=== PATIENT | female | born 1995 | race Caucasian/White ===

== ENCOUNTER → 2021-11-02 | Outpatient (REF) | payer OTHER ==
[2021-11-02 12:25] LABS: BASO # 0.1 10^3/uL (0.0-0.2); BASO % 0.7 % (0.0-1.0); EOS # 0.1 10^3/uL (0.0-0.5); EOS % 1.7 % (0.0-3.0); HEMATOCRIT 40.9 % (36.0-47.0); HEMOGLOBIN 13.3 g/dl (12.0-15.5); LYMPH # 1.5 10^3/uL (1.5-5.0); LYMPH % 21.8 % (24.0-44.0); MEAN CORPUSCULAR HEMOGLOBIN 28.9 pg (27.0-33.0); MEAN CORPUSCULAR HGB CONC 32.5 g/dl (32.0-36.5); MEAN CORPUSCULAR VOLUME 88.9 fl (80.0-96.0); MONO # 0.4 10^3/uL (0.0-0.8); MONO % 5.7 % (2.0-8.0); NEUTROPHILS # 4.9 10^3/uL (1.5-8.5); NEUTROPHILS % 69.8 % (36.0-66.0); PLATELET COUNT, AUTOMATED 319 10^3/uL (150-450); WHITE BLOOD COUNT 7.1 10^3/uL (4.0-10.0)
[2021-11-02 12:48] LABS: ALBUMIN 3.7 GM/DL (3.2-5.2); ALT/SGPT 21 U/L (12-78); BILIRUBIN,TOTAL 0.4 MG/DL (0.2-1.0); BLOOD UREA NITROGEN 13 MG/DL (7-18); C REACTIVE PROTEIN QUANTITATIV 0.34 MG/DL (0.00-0.30); CALCIUM LEVEL 9.1 MG/DL (8.5-10.1); CARBON DIOXIDE LEVEL 26 MEQ/L (21-32); CHLORIDE LEVEL 106 MEQ/L (98-107); GLOMERULAR FILTRATION RATE > 60.0 (>60); GLUCOSE, FASTING 98 MG/DL (70-100); POTASSIUM SERUM 4.5 MEQ/L (3.5-5.1); SODIUM LEVEL 136 MEQ/L (136-145); TOTAL PROTEIN 7.3 GM/DL (6.4-8.2)
[2021-11-02 13:24] LABS: ERYTHROCYTE SEDIMENTATION RATE 10 mm/hr (0-20)
[2021-11-02 13:29] LABS: HEPATITIS B SURFACE ANTIGEN NEGATIVE (NEGATIVE)
[2021-11-02 13:56] LABS: HEPATITIS C VIRUS ABY INDEX < 0.0 INDEX (<0.8)
[2021-11-02 13:57] LABS: HEPATITIS B CORE ANTIBODY IGM NEGATIVE (NEGATIVE)
== END ==
LOC: M SFHCRHEU 08:51
PROVIDERS: ATTEND Internal Medicine Rheumatology
DX: M45.0 Ankylosing spondylitis of multiple sites in spine (principal); Z15.89 Genetic susceptibility to other disease; Z79.899 Other long term (current) drug therapy; R76.8 Other specified abnormal immunological findings in serum

== ENCOUNTER → 2022-05-14 | Outpatient (CLI) | payer OTHER ==
[2022-05-14 11:42] LABS: BASO % 0.5 % (0.0-1.0); EOS # 0.1 10^3/uL (0.0-0.5); EOS % 1.4 % (0.0-3.0); HEMATOCRIT 34.7 % (36.0-47.0); LYMPH # 2.3 10^3/uL (1.5-5.0); LYMPH % 27.8 % (24.0-44.0); MEAN CORPUSCULAR HEMOGLOBIN 26.7 pg (27.0-33.0); MEAN CORPUSCULAR HGB CONC 31.7 g/dl (32.0-36.5); MEAN CORPUSCULAR VOLUME 84.2 fl (80.0-96.0); MONO # 0.6 10^3/uL (0.0-0.8); MONO % 7.2 % (2.0-8.0); NEUTROPHILS # 5.3 10^3/uL (1.5-8.5); NEUTROPHILS % 62.5 % (36.0-66.0); PLATELET COUNT, AUTOMATED 281 10^3/uL (150-450); RED BLOOD COUNT 4.12 10^6/uL (4.00-5.40); WHITE BLOOD COUNT 8.4 10^3/uL (4.0-10.0)
[2022-05-14 12:13] LABS: C REACTIVE PROTEIN QUANTITATIV < 0.40 MG/DL (<1.0)
[2022-05-14 12:19] LABS: ALBUMIN 2.6 G/DL (3.2-5.2); ALKALINE PHOSPHATASE 100 U/L (46-116); ALT/SGPT 15 U/L (7.0-40); AST/SGOT 17 U/L (<34); BILIRUBIN,TOTAL 0.5 MG/DL (0.3-1.2); BLOOD UREA NITROGEN 8 MG/DL (9-23); CALCIUM LEVEL 7.9 MG/DL (8.5-10.1); CARBON DIOXIDE LEVEL 26 MMOL/L (20-31); CHLORIDE LEVEL 105 MMOL/L (98-107); CREATININE FOR GFR 0.49 MG/DL (0.55-1.30); GLOMERULAR FILTRATION RATE > 60.0 (>60); GLUCOSE, FASTING 99 MG/DL (60-100); SODIUM LEVEL 137 MMOL/L (136-145); TOTAL PROTEIN 6.1 G/DL (5.7-8.2)
[2022-05-14 13:18] LABS: ERYTHROCYTE SEDIMENTATION RATE 37 mm/hr (0-20)
== END ==
LOC: M WUC 09:45
PROVIDERS: ATTEND Internal Medicine Rheumatology
DX: M45.0 Ankylosing spondylitis of multiple sites in spine (principal); R76.8 Other specified abnormal immunological findings in serum; Z15.89 Genetic susceptibility to other disease; Z79.899 Other long term (current) drug therapy; Z36.9 Encounter for antenatal screening, unspecified

== ENCOUNTER 2022-07-05 12:48 | Outpatient (CLI) | payer OTHER ==
[~2022-07-05] VITALS: Ht 172.7 cm; Wt 84.9 kg
[2022-07-05] MEDS ORDERED: ASPI81CH33 PO (13:24)
[2022-07-05] MEDS ORDERED: PRIL20TA2 PO (13:24)
[2022-07-05] MEDS ORDERED: TUMS500C PO (13:24)
[2022-07-05] MEDS ORDERED: CIMZ200K SC (13:24)
[2022-07-05] MEDS ORDERED: PRENTAB9 PO ×2 (13:24)
[2022-07-05 13:28] VITALS: BP 125/75
[2022-07-05] MEDS ORDERED: HOME MED LIST COMPLETE! XX SCH (13:30)
[2022-07-05] MEDS ORDERED: REGL10TA6 PO (13:33)
[2022-07-05 15:21] VITALS: BP 126/73
== END 2022-07-05 15:30 | disposition home or self-care (01) ==
LOC: M LDO 12:48
PROVIDERS: ATTEND Advanced Practice Midwife
DX: O47.1 False labor at or after 37 completed weeks of gestation (principal); Z3A.39 39 weeks gestation of pregnancy
CPT/HCPCS: 59025; 76815; G0463

== ENCOUNTER 2022-07-05 17:42 | Inpatient (IN) | payer OTHER ==
[2022-07-05] VITALS (39 sets, daily range): BP systolic 101–144; BP diastolic 56–90
[~2022-07-05] VITALS: Ht 172.7 cm; Wt 84.9 kg
[~2022-07-05 17:42] MED LIST: ASPI81CH33 PO; CIMZ200K SC; PRENTAB9 PO; PRIL20TA2 PO; REGL10TA6 PO; TUMS500C PO
[2022-07-05] MEDS ORDERED: CARBOPROST TROMETHAMINE 250 MCG/ML AMP IM PRN (18:05)
[2022-07-05] MEDS ORDERED: OXYTOCIN INJ 10UNITS/ML 1ML VIAL IV PRN (18:05)
[2022-07-05] MEDS ORDERED: METHYLERGONOVINE MALEATE 0.2MG/ML 1ML VIAL IM PRN (18:05)
[2022-07-05] MEDS ORDERED: LIDOCAINE 1% MDV 20ML VIAL INFIL PRN (18:05)
[2022-07-05] MEDS ORDERED: TRANEXAMIC ACID INJection 1,000 MG in NS 100 ML IV PRN (18:05)
[2022-07-05] MEDS ORDERED: OXYTOCIN DRIP 30 UNITS in IV 1 EA IV PRN ×6 (18:05)
[2022-07-05] MEDS ORDERED: OXYTOCIN INJ 10UNITS/ML 1ML VIAL IM PRN (18:05)
[2022-07-05] MEDS ORDERED: HOME MED LIST COMPLETE! XX SCH (18:20)
[2022-07-05] MEDS: LACTATED RINGER'S 1000 ML IV STA ×2 (18:23→19:08)
[2022-07-05] MEDS ORDERED: OXYTOCIN DRIP 30 UNITS in IV 1 EA IV SCH (18:45)
[2022-07-05] MEDS ORDERED: LR 1,000 ML IV SCH (18:45)
[2022-07-05 18:46] LABS: HEMATOCRIT 34.2 % (36.0-47.0); HEMOGLOBIN 10.9 g/dl (12.0-15.5); MEAN CORPUSCULAR HGB CONC 31.9 g/dl (32.0-36.5); MEAN CORPUSCULAR VOLUME 75.3 fl (80.0-96.0); PLATELET COUNT, AUTOMATED 321 10^3/uL (150-450); RED BLOOD COUNT 4.54 10^6/uL (4.00-5.40); WHITE BLOOD COUNT 10.9 10^3/uL (4.0-10.0)
[2022-07-05] MEDS: LR 1,000 ML IV SCH (19:07)
[2022-07-05] MEDS ORDERED: EPIDURAL/PCA KEYS XX PRN (19:55)
[2022-07-05] MEDS ORDERED: ePHEDrine SULFATE 25 MG/5 ML(5MG/ML) SYRINGE IVP PRN (19:55)
[2022-07-05] MEDS ORDERED: ONDANSETRON 4MG 2ML VIAL IV PRN (19:55)
[2022-07-05] MEDS ORDERED: LR 500 ML IV PRN (19:55)
[2022-07-05] MEDS ORDERED: diphenhydrAMINE 50MG/ML VIAL IV PRN (19:55)
[2022-07-05] MEDS ORDERED: FENTANYL/ROPIVACAINE/NACL BAG 100 ML EPIDURAL SCH (19:55)
[2022-07-05] MEDS ORDERED: NALOXONE INJ 0.4MG/1ML VIAL IV PRN (19:55)
[2022-07-05] MEDS ORDERED: CALCIUM CARBONATE 500 MG CHEW U/D PO ONE (22:00)
[2022-07-06] VITALS (10 sets, daily range): BP systolic 114–144; BP diastolic 57–87
[2022-07-06] MEDS: LR 1,000 ML IV SCH (00:39)
[2022-07-06] MEDS ORDERED: DOCUSATE SODIUM 100MG CAPSULE PO PRN (01:50)
[2022-07-06] MEDS ORDERED: ACETAMINOPHEN 500 MG TAB PO PRN (01:50)
[2022-07-06] MEDS ORDERED: IBUPROFEN 800 MG TAB PO PRN (01:50)
[2022-07-06] MEDS ORDERED: ANUSOL HC CREAM 30GM TOP PRN (01:50)
[2022-07-06] MEDS ORDERED: MOM 30ML SUSPENSION UDC PO PRN (01:50)
[2022-07-06] MEDS ORDERED: DIBUCAINE 1% OINTMENT 30GM TOP PRN (01:50)
[2022-07-06] MEDS: OMEPRAZOLE 20MG CAP PO SCH (08:33)
[2022-07-06] MEDS: FERROUS SULFATE 325MG TAB PO SCH (08:33)
[2022-07-06] MEDS: PRENATAL VITAMINS CHEWABLE TABLET PO SCH (08:33)
[2022-07-06] MEDS ORDERED: PRENATAL VITAMINS CHEWABLE TABLET PO SCH (09:00)
[2022-07-06] MEDS ORDERED: INFLUENZA QUADRIVALENT PF VACCINE 0.5ML SYRINGE IM.IMMUN ONE (11:20)
[2022-07-07 06:00] VITALS: BP 127/78
[2022-07-07] MEDS: FERROUS SULFATE 325MG TAB PO SCH (09:27)
[2022-07-07] MEDS: PRENATAL VITAMINS CHEWABLE TABLET PO SCH (09:28)
[2022-07-07] MEDS: OMEPRAZOLE 20MG CAP PO SCH (09:28)
[2022-07-07] MEDS ORDERED: ACET-683 PO (11:28)
[2022-07-07] MEDS ORDERED: COLA100C5 PO (11:28)
[2022-07-07] MEDS ORDERED: IBUP80TA PO (11:28)
== END 2022-07-07 13:05 | disposition home or self-care (01) | DRG 807 ==
LOC: M LDO 17:42 → M LDI 18:01 → M OBS 07-06 04:12
PROVIDERS: ADMIT Obstetrics & Gynecology; ATTEND Obstetrics & Gynecology
PROC: 10907ZC Drainage of Amniotic Fluid, Therapeutic from Products of Conception, Via Natural or Artificial Opening (ICD-10-PCS; 2022-07-05)
PROC: 10E0XZZ Delivery of Products of Conception, External Approach (ICD-10-PCS; principal; 2022-07-07)
DX: O26.893 Other specified pregnancy related conditions, third trimester (principal); Z37.0 Single live birth; M45.9 Ankylosing spondylitis of unspecified sites in spine; Z3A.39 39 weeks gestation of pregnancy; Z79.82 Long term (current) use of aspirin; Z79.899 Other long term (current) drug therapy; O26.03 Excessive weight gain in pregnancy, third trimester; O69.81X0 Labor and delivery complicated by cord around neck, without compression, not applicable or unspecified